=== PATIENT | male | born 1975 | race Caucasian/White ===

== ENCOUNTER 2017-08-24 08:00 | Observation (INO) | payer BC ==
[~2017-08-24 08:00] MED LIST: EPINEPHrine 1 MG/ML SDV ONE; Lactated Ringers 1,000 ML IV SCH; Oxymetazoline 0.05% Nasal Spray 15 ML Bottle ONE
--- NOTE | 2017-08-24 10:06 | PCM.PREANE ---
Preanesthetic Assessment - Procedure Proposed Procedure: Tonsillectomy; possible uvuloplasty - Anesthesia/Transfusion/Family Hx Anesthesia History: Prior Anesthesia Without Reaction Family History of Anesthesia Reaction: No Transfusion History: No Prior Transfusion(s) - Review of Systems General: No Symptoms Pulmonary: Other (snoring) Cardiovascular: No Symptoms Gastrointestinal: Other (GERD on omeprazole) Neurological: No Symptoms Other: Reports: None - Physical Assessment NPO Status Date: 08/23/17 NPO Status Time: 22:00 O2 Sat by Pulse Oximetry: 98 Respiratory Rate: 16 Vital Signs: Last Vital Signs Temp 98.1 F 08/24/17 08:20 Pulse 78 08/24/17 08:20 Resp 16 08/24/17 08:20 BP 136/82 08/24/17 08:20 Pulse Ox 98 08/24/17 08:20 Height: 5 ft 11 in Weight: 237 lb ASA Class: 2 Mental Status: Alert & Oriented x3 Airway Class: Mallampati = 2 Dentition: Reports: Normal Dentition Thyro-Mental Finger Breadths: 3 Mouth Opening Finger Breadths: 3 ROM/Head Extension: Full Lungs: Clear to Auscultation, Normal Respiratory Effort Cardiovascular: Regular Rate, Regular Rhythm, No Murmurs - Allergies Allergies/Adverse Reactions: Allergies Allergy/AdvReac Type Severity Reaction Status Date / Time No Known Allergies Allergy Verified 08/19/17 10:34 - Blood Blood Available: No Product(s) Available: None - Anesthesia Plan Pre-Op Medication Ordered: None - Acknowledgements Anesthesia Type Planned: General Anesthesia Pt an Appropriate Candidate for the Planned Anesthesia: Yes Alternatives and Risks of Anesthesia Discussed w Pt/Guardian: Yes Pt/Guardian Understands and Agrees with Anesthesia Plan: Yes PreAnesthesia Questionnaire HEENT History: Reports: Other (See Below) Other HEENT History: wears glasses Cardiovascular History: Reports: High Cholesterol Respiratory History: Reports: Other (See Below) Other Respiratory History: undiagnosed sleep apnea Gastrointestinal History: Reports: GERD Endocrine/Metabolic History: Reports: Obesity/BMI 30+ - Past Surgical History Head Surgeries/Procedures: Reports: None Musculoskeletal Surgical History: Reports: Arthroscopic Knee Other Musculoskeletal Surgeries/Procedures:: left ACL repair - SUBSTANCE USE Smoking Status *Q: Never Smoker Recreational Drug Use History: No - HOME MEDS Home Medications: Home Meds Omeprazole 20 mg PO DAILY 08/19/17 [History] Simvastatin 40 mg PO DAILY 08/19/17 [History] - CURRENT (IN HOUSE) MEDS Current Meds: Current Medications Lactated Ringer's (Ringers, Lactated) 1,000 mls @ 125 mls/hr IV ASDIRECTED RODOLFO Last Admin: 08/24/17 08:23 Dose: 125 mls/hr Discontinued Medications Epinephrine HCl (Adrenalin) Confirm Administered Dose 1 mg .ROUTE .STK-MED ONE Stop: 08/24/17 07:38 Oxymetazoline HCl (Afrin Original 0.05% Nasal [place]) Confirm Administered Dose 15 ml .ROUTE .STK-MED ONE Stop: 08/24/17 07:38
[2017-08-24] MEDS ORDERED: Lidocaine 2% 5 ML SDV ONE (10:12)
[2017-08-24] MEDS ORDERED: Propofol 200 MG/20 ML SDV ONE (10:13)
[2017-08-24] MEDS ORDERED: Midazolam 1 MG/ML 2 ML SDV ONE (10:13)
[2017-08-24] MEDS ORDERED: fentaNYL 250 MCG/5 ML SDV ONE (10:13)
[2017-08-24] MEDS ORDERED: fentaNYL 100 MCG/2 ML SDV ONE (10:13)
[2017-08-24] MEDS ORDERED: Dexamethasone 4 MG/ML 5 ML MDV ONE (10:14)
[2017-08-24] MEDS ORDERED: Neostigmine Methylsulfate 1 MG/ML 5 ML Syringe ONE (10:14)
[2017-08-24] MEDS ORDERED: Glycopyrrolate 0.2 MG/ML SDV ONE (10:14)
[2017-08-24] MEDS ORDERED: Ondansetron 4 MG/2 ML SDV ONE (10:14)
[2017-08-24] MEDS ORDERED: Rocuronium 10 MG/ML 10 ML Syringe ONE (10:14)
--- NOTE | 2017-08-24 11:19 | PCM.HPR ---
H & P Addendum review - H & P Addendum Review Date of Original H & P: 08/18/17 Date Reviewed: 08/24/17 Time Reviewed: 11:10 Patient was Examined: No Changes
--- NOTE | 2017-08-24 11:21 | PCM.OPNOTE ---
- General Post-Op/Procedure Note Condition: Good Free Text/Narrative:: Preoperative Diagnosis: Snoring ,sleep disordered breathing, tonsillar hypertrophy, elongated uvula Postoperative Diagnosis:Snoring ,sleep disordered breathing, tonsillar hypertrophy, elongated uvula Procedure: Bilateral tonsillectomy, partial uvulectomy Surgeon: Clarissa Gao MD Anesthesia: GA Anesthesiologist: Ramesh Tang CRNA Date of procedure: 08/24/2017 Indications: Snoring ,sleep disordered breathing, tonsillar hypertrophy Findings: Bilateral Gr 3 tonsils, long uvula Operation Details: An informed consent was obtained. A time out was performed and the patient was brought back to the operating room. General anesthesia was administered with an endotracheal tube. The table was turned 90 away from the anesthesia cart. Patient was appropriately positioned on the operating table. An appropriately sized Susi Johnson mouth gag was positioned and suspended from a Paiz stand. The right tonsil was grasped with a Keenan Brown tonsil holding forceps, upper pole dissected with bipolar forceps at setting of 10 tidwell. The tonsillar fossa was packed with an oxymetazoline 0.05% soaked 2 x 2 gauze. The left tonsil was then similarly dissected and fossa packed with an oxymetazoline 0.05% soaked 2 x 2 gauze. Hemostasis was achieved bilaterally with the bipolar cautery at a setting of 10 W. Bilateral fossae were irrigated with warm saline and hemostasis was ensured. The uvula was held with foceps; 0.25% marcaine with 1: 200,000 epinephrine was injected at the base of uvula; lower 2/3 was resected with point bovie at a setting of 15 tidwell cuttting; hemostasis was achieved by coagulation. The mucosa was sutured with 3.0 vicryl. Postnasal space was suctioned clear. This concluded the procedure. Mouth gag was removed the oral cavity was inspected. Lips gums and teeth were intact. Lubricating jelly was applied to the lips. The patient was turned over to the anesthesiologist for recovery. Specimens: Bilateral tonsils IV fluids: 1800 ml Blood loss : 15 ml Blood products: nil Disposition: PACU for recovery Follow up: In 1 week
[2017-08-24] MEDS ORDERED: Ondansetron 4 MG/2 ML SDV IVPUSH PRN (11:23)
[2017-08-24] MEDS ORDERED: oxyCODONE 5 MG Tab PO PRN ×2 (11:23→16:40)
[2017-08-24] MEDS ORDERED: HYDROmorphone 2 MG/ML SDV ONE (11:29)
[2017-08-24] MEDS ORDERED: Ibuprofen 400 MG Tab PO SCH ×2 (11:30→16:45)
[2017-08-24] MEDS ORDERED: Scopolamine 1.5 MG Transdermal Patch ONE (11:48)
[2017-08-24] MEDS ORDERED: Acetaminophen 1,000 MG in Premix Bag 1 BAG IV ONE (12:00)
[2017-08-24] MEDS ORDERED: Bupivacaine 25%/EPINEPHrine/PF 30 ML ONE (12:08)
[2017-08-24] MEDS ORDERED: ePHEDrine 50 MG/ML SDV ONE (12:08)
[2017-08-24] MEDS ORDERED: fentaNYL 100 MCG/2 ML SDV IVPUSH PRN (13:03)
--- NOTE | 2017-08-24 13:51 | PCM.POSTAN ---
POST ANESTHESIA ASSESSMENT - MENTAL STATUS Mental Status: Alert, Oriented - RESPIRATORY Respiratory Status: Respiratory Rate WNL, Airway Patent, O2 Saturation Stable - CARDIOVASCULAR CV Status: Pulse Rate WNL, Blood Pressure Stable - GASTROINTESTINAL GI Status: No Symptoms - PAIN Pain Score: 0 - POST OP HYDRATION Hydration Status: Adequate & Stable
[2017-08-24] MEDS ORDERED: Ondansetron 4 MG Tab.DIS PO PRN (16:40)
[2017-08-24] MEDS: Acetaminophen 325 MG Tab PO SCH ×2 (17:42→23:45)
[2017-08-24] MEDS ORDERED: predniSONE 10 MG Tab PO ONE (20:00)
[2017-08-24] MEDS: Ibuprofen 400 MG Tab PO SCH (21:22)
[2017-08-25] MEDS: Acetaminophen 325 MG Tab PO SCH ×2 (04:32→10:00)
[2017-08-25] MEDS: Ibuprofen 400 MG Tab PO SCH (06:13)
--- NOTE | 2017-08-25 07:34 | PCM48HPAN ---
Post Anesthesia Note - EVALUATION WITHIN 48HRS OF ANESTHETIC Vital Signs in Normal Range: Yes Patient Participated in Evaluation: Yes Respiratory Function Stable: Yes Airway Patent: Yes Cardiovascular Function Stable: Yes Hydration Status Stable: Yes Pain Control Satisfactory: Yes Nausea and Vomiting Control Satisfactory: Yes Mental Status Recovered: Yes Resp Rate: 14 Temperature: 36.7 C
== END 2017-08-25 10:05 | disposition home or self-care (01) ==
LOC: MW.SDS 08:00 → MW.MS 16:42
PROVIDERS: ADMIT Otolaryngology; ATTEND Otolaryngology
DX: J35.1 Hypertrophy of tonsils (principal); Q38.6 Other congenital malformations of mouth; G47.30 Sleep apnea, unspecified; K21.9 Gastro-esophageal reflux disease without esophagitis; E78.00 Pure hypercholesterolemia, unspecified; E66.9 Obesity, unspecified; Z68.33 Body mass index [BMI] 33.0-33.9, adult; Z79.899 Other long term (current) drug therapy
CPT/HCPCS: 42140; 42826; 88304; A9270; J1100; J1170; J2250; J2405; J3010; J7120; 00170; J0171; J2704